=== PATIENT | female | born 2000 | race Caucasian/White ===

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

== ENCOUNTER 2018-11-30 22:26 | Emergency (ER) | payer OTHER ==
[2018-11-30 22:39] VITALS: TEMP 98.3
[2018-11-30] MEDS ORDERED: SODIUM CHLORIDE 0.9% 500 ML 500 ML IV STA (23:01)
--- NOTE | 2018-11-30 23:27 | ED ---
General Adult HPI - General Source: patient, family, EMS, RN notes reviewed, old records reviewed Mode of arrival: EMS Limitations: no limitations <Ryan Dao - Last Filed: 12/01/18 15:17> <Michael Hoff - Last Filed: 12/02/18 08:03> - General Chief complaint: Arrhythmia/Palpitations Stated complaint: Palpitations - History of Present Illness Initial comments: Chief complaint and history of present illness is a 26-year-old female brought to emergency by embolus because of palpitations. Patient reports that she was sleeping when she awakened she had a sensation of a rapid heartbeat. When EMS arrived her pulse rate was 1:15. Patient reports that was when it was at its highest. EKG was obtained here at a heart rate of 105. Patient's also 30 weeks . She is denying taking any medications, denies feeling ill, denies having a fever, denies having had any anxiety or problems that might make her heart rate go up. (Ryan Dao) - Related Data Home Medications Medication Instructions Recorded Confirmed Acetaminophen Tab [Tylenol Tab] 650 mg PO Q4-6H PRN 11/30/18 12/01/18 Def-Kltu-Eqatq Acid 1 tab PO DAILY 11/30/18 12/01/18 [-U Capsule (formulary)] Allergies Allergy/AdvReac Type Severity Reaction Status Date / Time No Known Allergies Allergy Verified 12/01/18 03:11 Review of Systems ROS Other: All systems not noted in ROS Statement are negative. <Ryan Dao - Last Filed: 12/01/18 15:17> ROS Other: All systems not noted in ROS Statement are negative. <Michael Hoff - Last Filed: 12/02/18 08:03> ROS Statement: Those systems with pertinent positive or pertinent negative responses have been documented in the HPI. Review of systems. Patient denies any headache no visual acuity changes denies chest pain states when her heart race for a fast she felt a little short of breath. No GI/ no neuro deficits. All systems are reviewed. Past medical problems 2 para 1. The patient's surgeries include a C- section. Family history no cancers or cardiac issues. Patient denies any ALLERGIES, nonsmoker, denies alcohol use. (Ryan Dao) Past Medical History Past Medical History: No Reported History History of Any Multi-Drug Resistant Organisms: None Reported Past Surgical History: No Surgical Hx Reported Past Psychological History: No Psychological Hx Reported Smoking Status: Never smoker Past Alcohol Use History: None Reported Past Drug Use History: None Reported - Past Family History Mother History Unknown: Yes Family Medical History: No Reported History <Ryan Dao - Last Filed: 12/01/18 15:17> General Exam Limitations: no limitations <Ryan Dao - Last Filed: 12/01/18 15:17> <Michael Hoff - Last Filed: 12/02/18 08:03> - General Exam Comments Initial Comments: General: The patient is awake and alert, in no distress, and does not appear acutely ill. Here with a chief complaint of rapid heartbeat. Vital signs shows temperature 98.3 pulse 105 respiratory rate 18 pulse ox 97% room air blood pressure 124/75 Eye: Pupils are equal, round and reactive to light, extra-ocular movements are intact ; there is normal conjunctiva bilaterally. No signs of icterus. Ears, nose, mouth and throat: There are moist mucous membranes and no oral lesions. Neck: The neck is supple, there is no tenderness, no carotid bruit. Cardiovascular: Heart rate 105, no murmur. Respiratory: Lungs are clear to auscultation, respirations are non-labored, breath sounds are equal. No wheezes, stridor, rales, or rhonchi. Gastrointestinal: Soft, non-distended, non-tender abdomen without masses or organomegaly noted. There is no rebound or guarding present. No CVA tenderness. Bowel sounds are unremarkable. Patient is clinically known to be 30 weeks . Back: There is no tenderness to palpation in the midline. There is no obvious deformity. No rashes noted. Musculoskeletal: Normal ROM, no tenderness, There is no pedal edema. There is no calf tenderness or swelling. Sensation intact. Pulses equal bilaterally 2+. Neurological: CN II-XII intact, There are no obvious motor or sensory deficits. Coordination appears grossly intact. Speech is normal. Skin: Skin is warm and dry and no rashes or lesions are noted. Psychiatric: Cooperative, appropriate mood & affect, normal judgment. (Ryan Dao) Vital Signs 11/30/18 12/01/18 22:34 02:36 Temperature 98.3 F 98.3 F Pulse Rate 106 H 104 H Respiratory 18 20 Rate Blood Pressure 124/75 111/64 O2 Sat by Pulse 97 98 Oximetry EKG Findings - EKG Comments: EKG Findings:: EKG was done and reviewed at 2233 showing sinus tachycardia rate 105. No acute ST elevation no ectopy no ischemic changes. NC interval was 114 QRS 82 QT 328 QTc 433. <Ryan Dao - Last Filed: 12/01/18 15:17> Medical Decision Making - Lab Data Result diagrams: 11/30/18 23:18 11/30/18 23:18 <Ryan Dao - Last Filed: 12/01/18 15:17> - Lab Data Result diagrams: 11/30/18 23:18 11/30/18 23:18 <Michael Hoff - Last Filed: 12/02/18 08:03> - Medical Decision Making Medical decision making; is a 18-year-old female who was 30 weeks . Patient reports her she was awakened because of chest pressure and discomfort and felt short of breath. With palpitations. Heart rate in the emergency room was 120. Labs were done which showed a hemoglobin 9.4 hemoglobin hematocrit of 28. Potassium 3.9. D-dimer elevated 1.42. BUN 17 creatinine 0.43 with a GFR greater than 90. Glucose 111. TSH normal at 1.23. I discussed with the patient the elevated d-dimer associated with her chest pressure discussed mild discomfort increased heart rate, she will need a CT to rule out pulmonary embolism. Patient agrees at this time. (Ryan Dao) The patient was signed out to me pending the result of her computed tomography scan. The radiologist has interpreted this as not showing any evidence of pulmonary embolism. The patient's vital signs are stable here. Patient will be discharged to be cleared by labor and delivery. (Michael Hoff) - Lab Data Lab Results 11/30/18 11/30/18 11/30/18 Range/Units 23:18 23:18 23:18 WBC 12.0 H (4.0-11.0) k/uL RBC 3.29 L (3.80-5.40) m/uL Hgb 9.4 L (11.4-16.0) gm/dL Hct 28.5 L (34.0-46.0) % MCV 86.5 (80.0-100.0) fL MCH 28.6 (25.0-35.0) pg MCHC 33.1 (31.0-37.0) g/dL RDW 13.8 (11.5-15.5) % Plt Count 266 (150-450) k/uL Neutrophils % 74 % Lymphocytes % 16 % Monocytes % 6 % Eosinophils % 1 % Basophils % 0 % Neutrophils # 8.9 H (1.3-7.7) k/uL Lymphocytes # 1.9 (1.0-4.8) k/uL Monocytes # 0.8 (0-1.0) k/uL Eosinophils # 0.1 (0-0.7) k/uL Basophils # 0.0 (0-0.2) k/uL PT 9.7 (9.0-12.0) sec INR 0.9 (<1.2) APTT 26.6 (22.0-30.0) sec D-Dimer 1.42 H (<0.60) mg/L FEU Sodium (137-145) mmol/L Potassium (3.5-5.1) mmol/L Chloride (98-107) mmol/L Carbon Dioxide (22-30) mmol/L Anion Gap mmol/L BUN (7-17) mg/dL Creatinine (0.52-1.04) mg/dL Est GFR (CKD-EPI)AfAm (>60 ml/min/1.73 sqM) Est GFR (CKD-EPI)NonAf (>60 ml/min/1.73 sqM) Glucose (74-99) mg/dL Calcium (8.4-10.2) mg/dL Magnesium (1.6-2.3) mg/dL Total Bilirubin (0.2-1.3) mg/dL AST (14-36) U/L ALT (9-52) U/L Alkaline Phosphatase (38-126) U/L Total Creatine Kinase 38 (30-135) U/L CK-MB (CK-2) 0.3 (0.0-2.4) ng/mL CK-MB (CK-2) Rel Index 0.8 Troponin I <0.012 (0.000-0.034) ng/mL Total Protein (6.3-8.2) g/dL Albumin (3.5-5.0) g/dL TSH (0.465-4.680) mIU/L 11/30/18 Range/Units 23:18 WBC (4.0-11.0) k/uL RBC (3.80-5.40) m/uL Hgb (11.4-16.0) gm/dL Hct (34.0-46.0) % MCV (80.0-100.0) fL MCH (25.0-35.0) pg MCHC (31.0-37.0) g/dL RDW (11.5-15.5) % Plt Count (150-450) k/uL Neutrophils % % Lymphocytes % % Monocytes % % Eosinophils % % Basophils % % Neutrophils # (1.3-7.7) k/uL Lymphocytes # (1.0-4.8) k/uL Monocytes # (0-1.0) k/uL Eosinophils # (0-0.7) k/uL Basophils # (0-0.2) k/uL PT (9.0-12.0) sec INR (<1.2) APTT (22.0-30.0) sec D-Dimer (<0.60) mg/L FEU Sodium 137 (137-145) mmol/L Potassium 3.9 (3.5-5.1) mmol/L Chloride 110 H (98-107) mmol/L Carbon Dioxide 20 L (22-30) mmol/L Anion Gap 7 mmol/L BUN 7 (7-17) mg/dL Creatinine 0.43 L (0.52-1.04) mg/dL Est GFR (CKD-EPI)AfAm >90 (>60 ml/min/1.73 sqM) Est GFR (CKD-EPI)NonAf >90 (>60 ml/min/1.73 sqM) Glucose 111 H (74-99) mg/dL Calcium 9.0 (8.4-10.2) mg/dL Magnesium 1.9 (1.6-2.3) mg/dL Total Bilirubin 0.3 (0.2-1.3) mg/dL AST 16 (14-36) U/L ALT 16 (9-52) U/L Alkaline Phosphatase 75 (38-126) U/L Total Creatine Kinase (30-135) U/L CK-MB (CK-2) (0.0-2.4) ng/mL CK-MB (CK-2) Rel Index Troponin I (0.000-0.034) ng/mL Total Protein 6.2 L (6.3-8.2) g/dL Albumin 3.1 L (3.5-5.0) g/dL TSH 1.230 (0.465-4.680) mIU/L Disposition Is patient prescribed a controlled substance at d/c from ED?: No Time of Disposition: 15:16 <Ryan Dao - Last Filed: 12/01/18 15:17> Is patient prescribed a controlled substance at d/c from ED?: No <Michael Hoff - Last Filed: 12/02/18 08:03> Clinical Impression: Tachycardia, Palpitations Disposition: HOME SELF-CARE Condition: Good Instructions: Heart Palpitations (ED) Referrals: Lakhiwnder Adair DO [Primary Care Provider] - 1-2 days
[2018-11-30 23:36] LABS: Basophils % (A) 0 %; Eosinophils # (A) 0.1 k/uL (0-0.7); Eosinophils % (A) 1 %; HCT 28.5 % (34.0-46.0); HGB 9.4 gm/dL (11.4-16.0); Lymphocytes # (A) 1.9 k/uL (1.0-4.8); Lymphocytes % (A) 16 %; MCH 28.6 pg (25.0-35.0); MCHC 33.1 g/dL (31.0-37.0); MCV 86.5 fL (80.0-100.0); Monocytes # (A) 0.8 k/uL (0-1.0); Monocytes % (A) 6 %; Neutrophils # (A) 8.9 k/uL (1.3-7.7); Neutrophils % (A) 74 %; Platelet Count 266 k/uL (150-450); RBC 3.29 m/uL (3.80-5.40); RDW 13.8 % (11.5-15.5)
[2018-11-30 23:48] LABS: ALT 16 U/L (9-52); AST 16 U/L (14-36); Albumin 3.1 g/dL (3.5-5.0); Alkaline Phosphatase 75 U/L (38-126); Anion Gap 7 mmol/L; Blood Urea Nitrogen 7 mg/dL (7-17); Carbon Dioxide 20 mmol/L (22-30); Chloride 110 mmol/L (98-107); Glucose 111 mg/dL (74-99); Magnesium 1.9 mg/dL (1.6-2.3); Potassium 3.9 mmol/L (3.5-5.1); Sodium 137 mmol/L (137-145); Total Bilirubin 0.3 mg/dL (0.2-1.3); Total Protein 6.2 g/dL (6.3-8.2)
[2018-11-30 23:57] LABS: INR 0.9 (<1.2); Partial Thromboplastin Time 26.6 sec (22.0-30.0); Prothrombin Time 9.7 sec (9.0-12.0)
[2018-11-30 23:58] LABS: Creatine Kinase 38 U/L (30-135)
[2018-12-01 00:11] LABS: Creatine Kinase MB 0.3 ng/mL (0.0-2.4); Troponin I <0.012 ng/mL (0.000-0.034)
[2018-12-01 00:18] LABS: D-Dimer 1.42 mg/L FEU (<0.60)
--- NOTE | 2018-12-01 02:15 | CT ---
EXAMINATION TYPE: CT angio chest DATE OF EXAM: 12/01/2018 1:55 AM COMPARISON: None HISTORY: SOB CT DLP: 348.3 mGycm Automated exposure control for dose reduction was used. CONTRAST: CTA scan of the thorax is performed with IV Contrast, patient injected with 80mL mL of Isovue 370, pu lmonary embolism protocol. There are 3-D post processed images.. FINDINGS: The lungs are clear of infiltrate. There is no evidence of a pulmonary mass. There is no pleural effu daya. There is no pericardial effusion. Upper abdominal soft tissues are unremarkable. The heart size is normal. There is no pericardial effusion. There are no hilar masses. There is no me diastinal adenopathy. Thoracic aorta appears normal. There is no evidence of aneurysm or dissection. There is normal contra st opacification of the pulmonary arteries. There are no filling defects. The bony thorax is intact. IMPRESSION: NORMAL CT ANGIOGRAM OF THE CHEST. NO EVIDENCE OF PULMONARY EMBOLISM.
[2018-12-01 02:37] VITALS: BP 111/64; PULSE 104; RESP 20
== END 2018-12-01 02:57 | disposition home or self-care (01) ==
LOC: EC 22:26
DX: O99.89 Other specified diseases and conditions complicating pregnancy, childbirth and the puerperium (principal); R00.2 Palpitations; R00.0 Tachycardia, unspecified; R07.89 Other chest pain; R06.02 Shortness of breath; Z3A.30 30 weeks gestation of pregnancy
CPT/HCPCS: 36415; 71275; 80053; 82550; 82553; 83735; 84443; 84484; 85025; 85379; 85610; 85730; 93005; 99285

== ENCOUNTER 2018-12-01 03:05 | Outpatient (CLI) | payer OTHER ==
[2018-12-01 03:36] VITALS: BP 133/66; PULSE 96; RESP 16; TEMP 97.3
--- NOTE | 2019-01-22 10:32 | P.MSEPDOC ---
Presenting Problems - Arrival Data Date of Arrival on Unit: 12/01/18 Time of Arrival on Unit: 03:05 Mode of Transport: Wheelchair - Complaint OB-Reason for Admission/Chief Complaint: Other Comment: shortness of breath and elevated heart rate. Medical History - Information : 2 Para: 1 Term: 1 : 0 Abortions: Spontaneous or Elective: 0 Number of Living Children: 1 - Gestational Age Gestational Age by LAI (wks/days): 30 Weeks and 5 Days Review of Systems - Review of Systems Constitutional: No problems Breast: No problems ENT: No problems Cardiovascular: No problems Respiratory: No problems Gastrointestinal: No problems Genitourinary: No problems Musculoskeletal: No problems Neurological: No problems Skin: No problems Vital Signs - Temperature Temperature: 97.3 F Temperature Source: Temporal Artery Scan - Pulse Right Brachial Pulse Rate: 96 Pulse Assessment Method: Automatic Cuff - Respirations Respiratory Rate: 16 Oxygen Delivery Method: Room Air O2 Sat by Pulse Oximetry: 100 - Blood Pressure Right Arm Blood Pressure: 133/66 Blood Pressure Mean: 88 Blood Pressure Source: Automatic Cuff Medical Screen Scoring (Pre) - Cervical Exam Dilation: Exam Deferred Effacement: Exam Deferred Membranes: Intact - Uterine Contractions Frequency: N/A Duration: N/A Intensity: N/A - Maternal Vital Signs Maternal Temperature: N/A Maternal Blood Pressure: N/A Signs of Preeclampsia: N/A - Pain Assessment Pain Scale Used: Numeric (1 - 10) Pain Intensity: 0 - Maternal Trauma Maternal Trauma: N/A - Assessment Baseline FHR: 125 Heart Rate - NICHD Category: Category I (Normal) = 0 NST: Reactive Position: N/A Station: N/A - Total Score Total Score (Pre): 0 - Level of Risk Level of Risk: Low (0-5) Physician Notification (Pre) - Physician Notified Physician Notified Date: 12/01/18 Physician Notified Time: 03:25 Physician/Practitioner Notifed:: Dr. Young Spoke With: Dr. Young New Order Received: Yes - Notification Comment Comment: Dr. Young called and given report on pt in tr. Pt was evaluated in ER for elevated heartrate and shortness of breath. Pt vs wnl. Reactive nst. Orders recieved to d/c pt to home. Disposition - Disposition OB Disposition: Discharge to home Discharge Date: 12/01/18 Discharge Time: 03:35 I agree with the RN Medical Screening Exam: Yes Risk & Benefit of care provided described in d/c instruction: Yes Diagnosis: OTHER SPECIFIED COMPLICATIONS OF LABOR AND DELIVERY
== END 2018-12-01 03:35 | disposition home or self-care (01) ==
LOC: FBPOP 03:05
PROVIDERS: ATTEND Obstetrics & Gynecology Obstetrics
DX: O75.89 Other specified complications of labor and delivery (principal); Z3A.30 30 weeks gestation of pregnancy
CPT/HCPCS: 59025; G0463; 99213

== ENCOUNTER 2018-12-26 21:00 | Outpatient (CLI) | payer OTHER ==
[2018-12-26] MEDS ORDERED: LACTATED RINGERS 1,000 ML IV SCH ×2 (21:30→22:00)
[2018-12-26 21:32] LABS: Glucose,Whole Blood 90 mg/dL (75-99)
[2018-12-26 21:40] LABS: Basophils % (A) 0 %; Eosinophils # (A) 0.1 k/uL (0-0.7); Eosinophils % (A) 1 %; HCT 29.1 % (34.0-46.0); HGB 9.6 gm/dL (11.4-16.0); Hypochromasia Slight; Lymphocytes # (A) 2.3 k/uL (1.0-4.8); Lymphocytes % (A) 16 %; MCH 27.5 pg (25.0-35.0); MCHC 32.8 g/dL (31.0-37.0); MCV 83.9 fL (80.0-100.0); Mean Platelet Volume 7.5; Monocytes # (A) 0.8 k/uL (0-1.0); Monocytes % (A) 6 %; Neutrophils # (A) 10.6 k/uL (1.3-7.7); Neutrophils % (A) 75 %; Platelet Count 303 k/uL (150-450); RBC 3.47 m/uL (3.80-5.40); RDW 14.5 % (11.5-15.5); WBC 14.1 k/uL (4.0-11.0)
[2018-12-26 21:47] VITALS: BP 107/62; TEMP 98.9
[2018-12-26 21:56] LABS: Appearance,Urine Clear (Clear); Bacteria,Urine Rare /hpf; Bilirubin,Urine Negative (Negative); Blood,Urine Negative (Negative); Color,Urine Colorless; Glucose,Urine (UA) Negative (Negative); Ketones,Urine Negative (Negative); Leukocyte Esterase,Urine Large (Negative); Nitrite,Urine Negative (Negative); Protein,Urine Negative (Negative); RBC,Urine <1 /hpf (0-5); Specific Gravity,Urine 1.002 (1.001-1.035); Squamous Epithelial Cell,Urine 1 /hpf (0-4); Urobilinogen,Urine <2.0 mg/dL (<2.0); WBC,Urine 4 /hpf (0-5)
[2018-12-27 00:41] VITALS: PULSE 104; RESP 18
--- NOTE | 2019-01-18 11:42 | P.MSEPDOC ---
Presenting Problems - Arrival Data Date of Arrival on Unit: 12/26/18 Time of Arrival on Unit: 21:00 Mode of Transport: Ambulatory - Complaint OB-Reason for Admission/Chief Complaint: Other Comment: vaginal pressure Medical History - Information : 2 Para: 1 Term: 1 : 0 Abortions: Spontaneous or Elective: 0 Number of Living Children: 1 - Gestational Age Gestational Age by LAI (wks/days): 34 Weeks and 3 Days - History Complications: Other Comment: tachycardia Review of Systems - Review of Systems Constitutional: No problems Breast: No problems ENT: No problems Cardiovascular: Irregular heartbeat Respiratory: No problems Gastrointestinal: No problems Genitourinary: No problems Musculoskeletal: No problems Neurological: No problems Skin: No problems Vital Signs - Temperature Temperature: 98.9 F Temperature Source: Oral - Pulse Right Supine Brachial Pulse Rate: 104 Pulse Assessment Method: Automatic Cuff - Respirations Respiratory Rate: 18 Oxygen Delivery Method: Room Air O2 Sat by Pulse Oximetry: 99 - Blood Pressure Right Arm Supine Blood Pressure: 107/62 Blood Pressure Mean: 77 Blood Pressure Source: Automatic Cuff Medical Screen Scoring (Pre) - Cervical Exam Dilation: Exam Deferred Effacement: Exam Deferred - Uterine Contractions Frequency: N/A Duration: N/A Intensity: N/A - Maternal Vital Signs Maternal Temperature: N/A Signs of Preeclampsia: N/A - Pain Assessment Pain Scale Used: Numeric (1 - 10) Pain Intensity: 0 Pain Behavior: None Exhibited - Maternal Trauma Maternal Trauma: N/A - Assessment Baseline FHR: 165 Heart Rate - NICHD Category: Category II (Indeterminate) = 3 NST: Non-reactive = 3 - Total Score Total Score (Pre): 6 - Level of Risk Level of Risk: Medium (6-9) Physician Notification (Pre) - Physician Notified Physician Notified Date: 12/26/18 Physician Notified Time: 21:25 Physician/Practitioner Notifed:: Dr Gandhi Spoke With: Dr Gandhi New Order Received: Yes - Notification Comment Comment: Start IV of LR, draw CBC and UA and obtain CBG, call with results Medical Screen Scoring (Post) - Cervical Exam Dilation: 0 cm = 0 Membranes: Intact - Uterine Contractions Frequency: > 5 minutes apart = 1 - Pain Assessment Pain Scale Used: Numeric (1 - 10) Pain Intensity: 0 - Assessment Heart Rate: 125 Heart Rate - NICHD Category: Category I (Normal) = 0 NST: Reactive Position: N/A - Total Score Total Score (Post): 1 - Post Treatment Level of Risk Post Treatment Level of Risk: Low (0-5) Physician Notification (Post) - Physician Notified Physician Notified Date: 12/27/18 Physician Notified Time: 22:40 Physician/Practitioner Notified:: Dr Gandhi Spoke With: Dr Gandhi New Order Received: Yes - Notification Comment Comment: May discharge to home Disposition - Disposition OB Disposition: Discharge to home Discharge Date: 12/27/18 Discharge Time: 22:45 I agree with the RN Medical Screening Exam: Yes Risk & Benefit of care provided described in d/c instruction: Yes Diagnosis: FALSE LABOR BEFORE 37 COMPLETED WEEKS OF GEST, THIRD TRI
== END 2018-12-26 22:45 | disposition home or self-care (01) ==
LOC: FBPOP 21:00
PROVIDERS: ATTEND Obstetrics & Gynecology
DX: O47.03 False labor before 37 completed weeks of gestation, third trimester (principal); Z3A.34 34 weeks gestation of pregnancy
CPT/HCPCS: 59025; 96360; 85025; 81001; 87086; G0463; 99214

== ENCOUNTER 2019-01-23 11:50 | Outpatient (CLI) | payer OTHER ==
[2019-01-23] MEDS ORDERED: LACTATED RINGERS 1,000 ML IV SCH (12:28)
[2019-01-23 13:20] VITALS: BP 136/63; PULSE 112; RESP 18; TEMP 97.7
--- NOTE | 2019-02-21 11:25 | P.MSEPDOC ---
Presenting Problems - Arrival Data Date of Arrival on Unit: 01/23/19 Time of Arrival on Unit: 11:50 Mode of Transport: Ambulatory - Complaint OB-Reason for Admission/Chief Complaint: Possible Onset of Labor, Rule Out SROM Comment: presents to triage for contractions and possible SROM Medical History - Information : 2 Para: 1 Term: 1 : 0 Abortions: Spontaneous or Elective: 0 Number of Living Children: 1 - Gestational Age Gestational Age by LAI (wks/days): 38 Weeks and 2 Days Review of Systems - Review of Systems Constitutional: No problems Breast: No problems ENT: No problems Cardiovascular: No problems Respiratory: No problems Gastrointestinal: No problems Genitourinary: No problems Musculoskeletal: No problems Neurological: No problems Skin: No problems Vital Signs - Temperature Temperature: 97.7 F Temperature Source: Temporal Artery Scan - Pulse Right Brachial Pulse Rate: 112 - Respirations Respiratory Rate: 18 Oxygen Delivery Method: Room Air - Blood Pressure Right Arm Blood Pressure: 136/63 Blood Pressure Mean: 87 Medical Screen Scoring (Pre) - Cervical Exam Dilation: 0 cm = 0 Effacement: More than 50% = 2 Membranes: Intact - Uterine Contractions Frequency: Scheduled / = 6 Duration: > 40 seconds = 2 Intensity: N/A - Maternal Vital Signs Maternal Temperature: N/A Maternal Blood Pressure: N/A Signs of Preeclampsia: N/A Maternal Respirations: N/A - Pain Assessment Pain Location and Character: Abdomen Pain Scale Used: Numeric (1 - 10) Pain Intensity: 9 Pain Description: *Acute, Cramping Pain Radiation Location: none Pain Frequency: Intermittent Pain Duration: 2 Pain Duration Units: Hours Pain Behavior: Vocalization Pain Aggravating Factors: Contractions - Maternal Trauma Maternal Trauma: N/A - Assessment Baseline FHR: 140 Heart Rate - NICHD Category: Category I (Normal) = 0 NST: Reactive Position: N/A - Total Score Total Score (Pre): 10 - Level of Risk Level of Risk: High (10+) Physician Notification (Pre) - Physician Notified Physician Notified Date: 01/23/19 Physician Notified Time: 12:28 Physician/Practitioner Notifed:: Dr. Gandhi Spoke With: Dr. Gandhi New Order Received: Yes - Notification Comment Comment: give pt IVF for hydration and recheck cervix in an hour Medical Screen Scoring (Post) - Cervical Exam Dilation: 0 cm = 0 Effacement: More than 50% = 2 Membranes: Intact - Uterine Contractions Frequency: Scheduled / = 6 Duration: N/A Intensity: N/A - Maternal Vital Signs Maternal Temperature: N/A Signs of Preeclampsia: N/A Maternal Respirations: N/A - Pain Assessment Pain Location and Character: Abdomen Pain Scale Used: Numeric (1 - 10) Pain Intensity: 6 Pain Description: *Acute, Cramping - Maternal Trauma Maternal Trauma: N/A - Assessment Heart Rate: 140 Heart Rate - NICHD Category: Category I (Normal) = 0 NST: Reactive Position: N/A Station: N/A - Total Score Total Score (Post): 8 - Post Treatment Level of Risk Post Treatment Level of Risk: Medium (6-9) Physician Notification (Post) - Physician Notified Physician Notified Date: 01/23/19 Physician Notified Time: 13:25 Physician/Practitioner Notified:: Dr. Gandhi Spoke With: Dr. Gandhi New Order Received: Yes - Notification Comment Comment: pt treated with IVF, no cervical change, contractions less and pain better, pt scheduled for repeat c/s on January 29 Disposition - Disposition OB Disposition: Triage, Discharge to home, Written follow up instructions reviewed Discharge Date: 01/23/19 Discharge Time: 13:35 I agree with the RN Medical Screening Exam: Yes Risk & Benefit of care provided described in d/c instruction: Yes Diagnosis: FALSE LABOR AT OR AFTER 37 COMPLETED WEEKS OF GESTATION
== END 2019-01-23 13:35 | disposition home or self-care (01) ==
LOC: FBPOP 11:50
PROVIDERS: ATTEND Obstetrics & Gynecology
DX: O47.1 False labor at or after 37 completed weeks of gestation (principal); Z3A.38 38 weeks gestation of pregnancy
CPT/HCPCS: 59025; 96360; G0463; 99214

== ENCOUNTER 2019-01-24 08:18 | Inpatient (IN) | payer OTHER ==
[2019-01-24] MEDS ORDERED: CITRIC ACID-SODIUM CITRATE 15 ML CUP PO ONE (08:54)
[2019-01-24] MEDS ORDERED: ceFAZolin IN SWFI 2 GM/20 ML SYRINGE IVP ONE (08:54)
[2019-01-24] MEDS ORDERED: LACTATED RINGERS 1,000 ML IV SCH (09:00)
[2019-01-24 09:38] VITALS: BMI 38.2
[2019-01-24 09:48] LABS: Basophils % (A) 0 %; Eosinophils # (A) 0.1 k/uL (0-0.7); Eosinophils % (A) 1 %; HCT 29.4 % (34.0-46.0); HGB 9.3 gm/dL (11.4-16.0); Hypochromasia Moderate; Lymphocytes % (A) 14 %; MCH 26.2 pg (25.0-35.0); MCHC 31.6 g/dL (31.0-37.0); Mean Platelet Volume 6.6; Monocytes # (A) 0.8 k/uL (0-1.0); Monocytes % (A) 6 %; Neutrophils % (A) 77 %; Platelet Count 333 k/uL (150-450); RBC 3.55 m/uL (3.80-5.40); RDW 15.4 % (11.5-15.5); WBC 14.3 k/uL (4.0-11.0)
[2019-01-24] MEDS ORDERED: NALBUPHINE 10 MG/ML (1 ML AMP) ONE (09:56)
[2019-01-24] MEDS ORDERED: KETOROLAC 30 MG/ML 1 ML VIAL ONE (09:56)
[2019-01-24] MEDS ORDERED: MORPHINE SULFATE (PF) 0.3 MG/0.3 ML SYR ONE (09:56)
[2019-01-24] MEDS ORDERED: ePHEDrine SULFATE/0.9% NACL/PF 50 MG/5 ML SYRINGE IV ONE (09:56)
[2019-01-24] MEDS ORDERED: ONDANSETRON 4 MG/2 ML VIAL ONE (09:56)
[2019-01-24] MEDS ORDERED: OXYTOCIN 10 UNIT/ML 1 ML VIAL ONE (09:56)
[2019-01-24] MEDS ORDERED: ACETAMINOPHEN TAB 325 MG TAB PO PRN (11:05)
[2019-01-24] MEDS ORDERED: diphenhydrAMINE 50 MG/ML 1 ML VIAL IVP PRN ×2 (11:05)
[2019-01-24] MEDS ORDERED: diphenhydrAMINE 50 MG CAP PO PRN (11:05)
[2019-01-24] MEDS ORDERED: diphenhydrAMINE 25 MG CAP PO PRN (11:05)
[2019-01-24] MEDS ORDERED: ZOLPIDEM 5 MG TAB PO PRN (11:05)
[2019-01-24] MEDS ORDERED: METOCLOPRAMIDE 5 MG/ML 2 ML VIAL IVP PRN (11:05)
[2019-01-24] MEDS ORDERED: NALOXONE 0.4 MG/ML 1 ML VIAL IV PRN (11:05)
[2019-01-24] MEDS ORDERED: ONDANSETRON 4 MG/2 ML VIAL IVP PRN (11:05)
--- NOTE | 2019-01-24 11:12 | P.HPOB ---
History of Present Illness H&P Date: 01/24/19 Chief Complaint: 38-3/7 weeks, previous section, labor The patient is a 18-year-old 2 para 1001 admitted at 38-3/7 weeks as established by an 8 week ultrasound. She is admitted in early active labor with all signs reassuring. She has demonstrated cervical change and has been to labor and delivery on several occasions over the last 24-48 hours complaining of contractions. She has a history of a previous section and has declined vaginal trial of labor. Her has otherwise been uncomplicated and group B strep status is positive. Obstetrical history: 2 para 1001 with 1 previous delivery at term for arrest of descent. Current statistics are listed in history of present illness. EDC of 02/07/2017 was established by an 8 week ultrasound. Laboratory workup demonstrates a blood type of A+ with a negative antibody screen. Rubella status is immune. The remainder of the laboratory workup was within normal limits. Early Glucola was within normal limits while second trimester Glucola was just elevated and she had a subsequent normal three-hour glucose tolerance test. Group B strep status is positive. Gynecologic history: Unremarkable with no history of any infections to include STDs. Review of Systems Review of systems is confined to history of present illness. Past Medical History Past Medical History: No Reported History History of Any Multi-Drug Resistant Organisms: None Reported Past Surgical History: Section Past Anesthesia/Blood Transfusion Reactions: No Reported Reaction Past Psychological History: No Psychological Hx Reported Smoking Status: Never smoker Past Alcohol Use History: None Reported Past Drug Use History: None Reported - Past Family History Mother History Unknown: Yes Family Medical History: No Reported History Medications and Allergies Home Medications Medication Instructions Recorded Confirmed Type Acetaminophen Tab [Tylenol Tab] 650 mg PO Q4-6H PRN 11/30/18 01/24/19 History Zza-Zybo-Fylxw Acid 1 tab PO DAILY 11/30/18 01/24/19 History [-U Capsule (formulary)] Allergies Allergy/AdvReac Type Severity Reaction Status Date / Time No Known Allergies Allergy Verified 01/23/19 12:01 Exam Vital Signs Temp Pulse Resp BP Pulse Ox 01/24/19 08:31 97.5 F L 102 H 18 129/82 99 Intake and Output 01/23/19 01/24/19 01/24/19 22:59 06:59 14:59 Other: Weight 97.976 kg In general, this is a well-developed, well-nourished female in no acute distress though she is uncomfortable in early labor. Her heart has a regular rhythm and rate without murmur. Her lungs are clear to auscultation bilaterally in all rodríguez. Her abdomen is gravid, nondistended, has normal active bowel sounds, is soft, nontender, and without any palpable masses aside from uterine fundus. Her extremities are without any cyanosis, clubbing, or edema and are nontender to palpation bilaterally. Digital cervical examination demonstrates her cervix to be approximately 1 cm dilated, 80% effaced, the vertex in presentation at -1-2 station which is a change from previous documentation last night. Results Result Diagrams: 01/24/19 09:05 Abnormal Lab Results - Last 24 Hours (Table) 01/24/19 Range/Units 09:05 WBC 14.3 H (4.0-11.0) k/uL RBC 3.55 L (3.80-5.40) m/uL Hgb 9.3 L (11.4-16.0) gm/dL Hct 29.4 L (34.0-46.0) % Neutrophils # 11.0 H (1.3-7.7) k/uL Assessment and Plan (1) Previous section Current Visit: Yes Status: Acute Code(s): Z98.891 - HISTORY OF UTERINE SCAR FROM PREVIOUS SURGERY SNOMED Code(s): 977090389 (2) Active labor at term Current Visit: Yes Status: Acute Code(s): OGF8623 - SNOMED Code(s): 66224495 Plan: The patient has requested repeat section rather than trial of labor. She will be taken the operating room where she was ago repeat low transverse section to be followed by routine postoperative care. The risks and complications have been thoroughly discussed.
[2019-01-24] MEDS ORDERED: OXYTOCIN 20 UNITS/1000 ML NS 1,000 ML IV SCH (11:15)
--- NOTE | 2019-01-24 11:18 | P.OP ---
Date of Procedure: 01/24/19 Preoperative Diagnosis: #1. 38-3/7 weeks, previous section, declining trial of labor #2. Active labor Postoperative Diagnosis: Same plus #3. Placental abruption Procedure(s) Performed: #1. Repeat low transverse section Anesthesia: spinal Surgeon: Henry Gandhi Fleecer #1: Kori Ly Estimated Blood Loss (ml): 500 IV fluids (ml): 1,200 Urine output (ml): 300 Pathology: other (Placenta) Condition: stable Disposition: floor Operative Findings: Intraoperatively, the patient had a moderate amount of scarring on all levels entering the abdomen. Upon opening the uterus, bloody fluid was encountered with some organized clot emerging is well. She was delivered of a viable 6 lbs. 15 oz. baby boy with Apgars of 7 at 1 minute and 8 at 5 minutes delivered in the occiput anterior position. The placenta was delivered manually, intact, and grossly normal although there was some organized clot present as noted above. The uterus, tubes, and ovaries were otherwise entirely normal to inspection. Description of Procedure: The patient was prepped and draped in usual fashion after spinal anesthesia was administered by the anesthesiologist. A Pfannenstiel incision was made through pre-existing scar and extended into the abdominal cavity with minimal difficulty. There was a mild to moderate amount of scarring on all levels entering the abdomen. The bladder peritoneum was elevated, incised, and reflected distally as it had scarred high from previous . A 2 cm incision was made in the transverse plane of the lower uterine segment to enter the uterus at which time blood fluid was noted. The incision was extended in both directions bluntly and the head delivered up and through the incision where the nose and mouth were thoroughly suctioned. There was additionally noted to be some organized clot that emerged with the fluid and the infant. The remainder of the was delivered onto the field where the cord was doubly c lamped, cut, and the infant passed for resuscitative measures with weight and Apgars as noted above. A segment of cord was doubly clamped, cut, and set aside should cord gases become necessary. The placenta was delivered manually and intact as noted above. The uterus was exteriorized and the interior cavity of the uterus swept of any remaining placental or membranous fragments. There was a moderate amount of possibly organized clot or decidual reaction present. The margins of the incision were grasped with Raygoza clamps and the incision was closed in 2 layers. The first layer was a running locking stitch of 0 chromic catgut from margin to margin followed by a running imbricating layer of 0 chromic catgut from margin to margin. The posterior cul-de-sac was suctioned with a guard and the uterine and ovarian findings are normal as noted above. The uterus was replaced within the abdominal cavity and the gutters swept of any remaining blood, fluid, or clot. Any small points of bleeding were made hemostatic with the Bovie. Once hemostasis was established, the parietal peritoneum was loosely reapproximated and layer of muscles examined and made hemostatic with the Bovie. The fascia was closed with 2 running stitches of 0 Vicryl proceeding from lateral margins to the midpoint. The subcutaneous tissues were irrigated, made hemostatic with the Bovie, and reapproximated with a running stitch of 30 plain catgut. The skin was reapproximated with a running subcuticular stitch of 4-0 Vicryl followed by half-inch Steri-Strips placed with Mastisol. Estimated blood loss for the entire case was approximate 500 mL. There were no complications. All sponge, instrument, and needle counts were correct. The patient tolerated the procedure well and proceeded to the recovery room in stable condition. Both mother and are resting comfortably in recovery though the infant has been taken the special care nursery for observation secondary to some difficulty with breathing, showing retractions.
[2019-01-24] MEDS: LACTATED RINGERS 1,000 ML IV SCH ×3 (12:06→21:47)
[2019-01-24] MEDS ORDERED: ACETAMINOPHEN IV (For NPO) 1,000 MG in EMPTY BAG 1 BAG IVPB STA (12:43)
[2019-01-24] MEDS: KETOROLAC 30 MG/ML 1 ML VIAL IVP PRN (17:45)
[2019-01-24] MEDS: SENNOSIDES-DOCUSATE SODIUM 1 EACH TAB PO SCH (21:47)
[2019-01-25] MEDS: LACTATED RINGERS 1,000 ML IV SCH (04:33)
[2019-01-25] MEDS: KETOROLAC 30 MG/ML 1 ML VIAL IVP PRN (06:56)
[2019-01-25 07:34] LABS: Basophils % (A) 0 %; Eosinophils # (A) 0.1 k/uL (0-0.7); Eosinophils % (A) 1 %; HCT 23.7 % (34.0-46.0); Hypochromasia Marked; Lymphocytes # (A) 1.9 k/uL (1.0-4.8); Lymphocytes % (A) 14 %; MCH 26.8 pg (25.0-35.0); MCHC 32.1 g/dL (31.0-37.0); MCV 83.5 fL (80.0-100.0); Mean Platelet Volume 6.6; Monocytes # (A) 0.8 k/uL (0-1.0); Monocytes % (A) 5 %; Neutrophils # (A) 11.3 k/uL (1.3-7.7); Neutrophils % (A) 79 %; Platelet Count 290 k/uL (150-450); RBC 2.84 m/uL (3.80-5.40); RDW 15.4 % (11.5-15.5); WBC 14.3 k/uL (4.0-11.0)
[2019-01-25 07:40] LABS: HGB 7.6 gm/dL (11.4-16.0)
[2019-01-25] MEDS: SENNOSIDES-DOCUSATE SODIUM 1 EACH TAB PO SCH ×2 (07:56→23:26)
[2019-01-25] MEDS: HYDROcodone/APAP 5-325MG 1 EACH TAB PO PRN ×2 (10:23→16:20)
--- NOTE | 2019-01-25 10:32 | P.PNOBGPC ---
Subjective - Subjective Principal diagnosis: POD 1 RCS secondary to abruption Interval history: Patient has done well overnight. She is ambulating and voiding without difficulty. She is tolerating a regular diet without nausea or vomiting. She denies concerns. She states her pain is well-controlled with oral pain medication Patient reports: Reports appetite normal, Reports voiding normally, Reports dizzy ambulation, Reports pain well controlled, Reports ambulating normally : doing well Objective - Vital Signs Latest vital signs: Vital Signs Temp Pulse Resp BP Pulse Ox 01/25/19 08:00 98.5 F 108 H 17 116/68 97 01/25/19 04:00 98 F 106 H 15 124/75 01/25/19 00:00 98 F 104 H 15 116/69 01/24/19 20:00 98 F 93 15 109/59 01/24/19 16:30 98.1 F 97 16 95/56 98 01/24/19 13:13 97.2 F L 103 H 14 121/64 100 01/24/19 12:43 125 H 14 113/59 100 01/24/19 12:13 117 H 14 120/66 99 01/24/19 11:58 85 16 119/61 97 01/24/19 11:43 88 14 116/58 97 01/24/19 11:28 110 H 14 124/66 100 01/24/19 11:13 97.4 F L 107 H 14 121/63 97 Intake and Output 01/24/19 01/25/19 01/25/19 22:59 06:59 14:59 Intake Total 600 Output Total 500 900 Balance -500 -900 600 Intake: Oral 600 Output: Urine 500 900 Uretheral (Stark) 300 Other: # Voids 1 1 - Exam Extremities: Present: normal Abdomen: Present: normal appearance, soft Incision: Present: normal, dry, intact Uterus: Present: normal, firm - Labs Labs: Abnormal Lab Results - Last 24 Hours (Table) 01/25/19 Range/Units 06:41 WBC 14.3 H (4.0-11.0) k/uL RBC 2.84 L (3.80-5.40) m/uL Hgb 7.6 L D (11.4-16.0) gm/dL Hct 23.7 L (34.0-46.0) % Neutrophils # 11.3 H (1.3-7.7) k/uL Assessment and Plan (1) Abruptio placenta Current Visit: Yes Status: Acute Code(s): O45.90 - PREMATURE SEPARATION OF PLACENTA, UNSP, UNSP TRIMESTER SNOMED Code(s): 109133893 (2) Previous section Current Visit: Yes Status: Acute Code(s): Z98.891 - HISTORY OF UTERINE SCAR FROM PREVIOUS SURGERY SNOMED Code(s): 114523310 (3) S/P section Current Visit: Yes Status: Acute Code(s): Z98.891 - HISTORY OF UTERINE SCAR FROM PREVIOUS SURGERY SNOMED Code(s): 382148886 Plan: We'll continue routine postoperative care.
[2019-01-25] MEDS: IBUPROFEN 600 MG TAB PO PRN ×2 (13:22→23:44)
[2019-01-25] MEDS: HYDROcodone/APAP 7.5-325MG 1 EACH TAB PO PRN (21:22)
[2019-01-26] MEDS: HYDROcodone/APAP 7.5-325MG 1 EACH TAB PO PRN ×3 (08:31→22:38)
[2019-01-26] MEDS: SENNOSIDES-DOCUSATE SODIUM 1 EACH TAB PO SCH (08:32)
--- NOTE | 2019-01-26 10:04 | P.PNOBGPC ---
Subjective - Subjective Principal diagnosis: POD 2 RCS Interval history: Patient continues to do well postoperatively. She is ambulating and voiding without difficulty. She states her pain is well-controlled. She denies concerns this morning. She does wish to stay an additional day secondary to her infant being in special care nursery. Patient reports: Reports appetite normal, Reports voiding normally, Reports pain well controlled, Reports ambulating normally [place]: doing well (In the nursery on high flow oxygen) Objective - Vital Signs Latest vital signs: Vital Signs Temp Pulse Resp BP Pulse Ox 01/26/19 07:30 98.2 F 115 H 17 121/90 100 01/26/19 00:00 98 F 99 15 118/69 01/25/19 15:41 98.7 F 98 17 104/58 - Exam Extremities: Present: normal Abdomen: Present: normal appearance, soft Incision: Present: normal, dry, intact Uterus: Present: normal, firm Assessment and Plan (1) Abruptio placenta Current Visit: Yes Status: Acute Code(s): O45.90 - PREMATURE SEPARATION OF PLACENTA, UNSP, UNSP TRIMESTER SNOMED Code(s): 073608155 (2) Previous section Current Visit: Yes Status: Acute Code(s): Z98.891 - HISTORY OF UTERINE SCAR FROM PREVIOUS SURGERY SNOMED Code(s): 167092220 (3) S/P section Current Visit: Yes Status: Acute Code(s): Z98.891 - HISTORY OF UTERINE SCAR FROM PREVIOUS SURGERY SNOMED Code(s): 314051858 Plan: . Patient continues to do well postoperatively we'll continue routine postoperative care
[2019-01-26] MEDS: IBUPROFEN 600 MG TAB PO PRN (12:52)
--- NOTE | 2019-01-26 16:49 | P.PN ---
Progress Note - Text Progress Note Date: 01/25/19 This is late entry,, patient was seen January 2019, Am . Postoperative day 1 status post section under spinal anesthesia, and intrathecal morphine given for postoperative analgesia, patient doing well, there is no anesthesia related complications, Patient had no headache, vital signs stable , Assessment and plan= postop day 1 , status post , doing well there is no anesthesia related complication.
[2019-01-27] MEDS: SENNOSIDES-DOCUSATE SODIUM 1 EACH TAB PO SCH ×3 (00:45→20:12)
[2019-01-27] MEDS: HYDROcodone/APAP 7.5-325MG 1 EACH TAB PO PRN ×2 (07:57→14:21)
--- NOTE | 2019-01-27 10:32 | P.PNOBGPC ---
Subjective - Subjective Patient reports: Reports appetite normal, Reports voiding normally, Reports pain well controlled, Reports ambulating normally : doing well, in NICU (Continues to have some difficulty with breathing, requiring supplemental oxygen.) Objective - Vital Signs Latest vital signs: Vital Signs Temp Pulse Resp BP Pulse Ox 01/27/19 08:00 98.6 F 94 15 108/59 98 01/27/19 00:00 98.4 F 97 16 118/69 01/26/19 15:16 98.0 F 84 17 104/61 99 - Exam Extremities: Present: normal Abdomen: Present: normal appearance, soft. Absent: distention, tenderness Incision: Present: normal, dry, intact Uterus: Present: normal, firm (The uterine fundus as tonic and appropriately tender around the umbilicus.) Assessment and Plan (1) Previous section Current Visit: Yes Status: Acute Code(s): Z98.891 - HISTORY OF UTERINE SCAR FROM PREVIOUS SURGERY SNOMED Code(s): 240313600 (2) Active labor at term Current Visit: Yes Status: Acute Code(s): KAX6743 - SNOMED Code(s): 28012034 (3) S/P section Current Visit: Yes Status: Acute Code(s): Z98.891 - HISTORY OF UTERINE SCAR FROM PREVIOUS SURGERY SNOMED Code(s): 395506005 Plan: As the remains and special care nursery for ongoing treatment, the patient is opting to remain in the hospital for as long as allowed. She will likely be discharged home tomorrow on postoperative day #4 barring no complications. Continue routine postoperative care.
[2019-01-27] MEDS: IBUPROFEN 600 MG TAB PO PRN (19:54)
[2019-01-27] MEDS: HYDROcodone/APAP 5-325MG 1 EACH TAB PO PRN (23:06)
[2019-01-28] MEDS: IBUPROFEN 600 MG TAB PO PRN ×3 (02:07→16:50)
[2019-01-28] MEDS: HYDROcodone/APAP 5-325MG 1 EACH TAB PO PRN ×2 (05:09→10:55)
[2019-01-28 07:49] VITALS: RESP 18
[2019-01-28] MEDS: SENNOSIDES-DOCUSATE SODIUM 1 EACH TAB PO SCH (08:00)
--- NOTE | 2019-01-28 09:14 | P.DS ---
Providers Date of admission: 01/24/19 09:02 Expected date of discharge: 01/28/19 Attending physician: Henry Gandhi Primary care physician: Stated None - Discharge Diagnosis(es) (1) Previous section Current Visit: Yes Status: Acute (2) Active labor at term Current Visit: Yes Status: Acute (3) S/P section Current Visit: Yes Status: Acute Hospital Course: The patient is a 18-year-old 2 para 1001 admitted at 38-3/7 weeks by good dating parameters perches admitted in early active labor with all signs reassuring. She has a history of previous section requested repeat. As result of labor, she was taken the operating room where she was delivered of a viable 6 lbs. 15 oz. baby boy with Apgars of 7 at 1 minute and 8 at 5 minutes. She was discovered intraoperatively to have a subclinical abruption of the placenta with grossly bloody fluid. The patient's postoperative course was unremarkable with vital signs remained stable and her temperature was afebrile throughout. She opted to remain in the hospital for the time allotted to her as the remained in special care for ongoing respiratory concerns. She was deemed stable for discharge on postoperative day #4 was discharged home to follow-up in the office in 2 weeks for an incision check and 6 weeks routinely. Discharge instructions included calling for any significantly increased bleeding or foul-smelling lochia, significantly increased fever abdominal pain, perineal complaints, breast complaints, incisional complaints, or anything else that concerned her. She is additionally instructed to have nothing in vagina for at least 6 weeks time to include intercourse. She understood her instructions and agrees to follow up as noted above. Discharge medications included continued vitamins as she is attempting to pump and/or breast-feed. She was additionally provided with a prescription for Tylenol 3, 1-2 by mouth every 6 hours when necessary pain, #20 dispensed with no refills. Maternal blood type is A+ and rubella status is immune. Discharge hemoglobin and hematocrit were 7.6 and 23.7 respectively. As result, she was to continue using iron sulfate 1- 2 times daily for the next month. Procedures: #1. Repeat low transverse section Patient Condition at Discharge: Good Plan - Discharge Summary Discharge Rx Participant: No New Discharge Prescriptions: No Action Eex-Fwns-Ygkuz Acid [-U Capsule (formulary)] 1 tab PO DAILY Acetaminophen Tab [Tylenol Tab] 650 mg PO Q4-6H PRN PRN Reason: Pain Discharge Medication List Acetaminophen Tab [Tylenol Tab] 650 mg PO Q4-6H PRN 11/30/18 [History] Kni-Yxsf-Wxnrx Acid [-U Capsule (formulary)] 1 tab PO DAILY 11/30/18 [History] Follow up Appointment(s)/Referral(s): Henry Gandhi MD [STAFF PHYSICIAN] - 2 Weeks Discharge Disposition: HOME SELF-CARE
[2019-01-28 17:09] VITALS: BP 143/78; PULSE 94; TEMP 98.2
== END 2019-01-28 17:59 | disposition home or self-care (01) | DRG 788 ==
LOC: FBPOP 08:18 → 4FBP 09:02
PROVIDERS: ADMIT Obstetrics & Gynecology; ATTEND Obstetrics & Gynecology
PROC: 10D00Z1 Extraction of Products of Conception, Low, Open Approach (ICD-10-PCS; principal; 2019-01-24 10:00)
DX: O45.93 Premature separation of placenta, unspecified, third trimester (principal); O34.211 Maternal care for low transverse scar from previous cesarean delivery; O99.824 Streptococcus B carrier state complicating childbirth; O13.4 Gestational [pregnancy-induced] hypertension without significant proteinuria, complicating childbirth; Z37.0 Single live birth; Z3A.38 38 weeks gestation of pregnancy
CPT/HCPCS: 59025; 85025; 86850; 86900; 86901; 88307; 99213

== ENCOUNTER → 2019-09-13 | Outpatient (CLI) | payer OTHER ==
[2019-09-13 11:53] LABS: Anisocytosis Slight; Basophils % (A) 0 %; Eosinophils # (A) 0.1 k/uL (0-0.7); Eosinophils % (A) 1 %; HCT 33.9 % (34.0-46.0); HGB 10.5 gm/dL (11.4-16.0); Hypochromasia Moderate; Lymphocytes # (A) 2.1 k/uL (1.0-4.8); Lymphocytes % (A) 29 %; MCH 24.5 pg (25.0-35.0); MCHC 30.9 g/dL (31.0-37.0); MCV 79.3 fL (80.0-100.0); Mean Platelet Volume 5.6; Microcytosis Slight; Monocytes # (A) 0.5 k/uL (0-1.0); Monocytes % (A) 7 %; Neutrophils # (A) 4.4 k/uL (1.3-7.7); Neutrophils % (A) 60 %; Platelet Count 456 k/uL (150-450); RBC 4.27 m/uL (3.80-5.40); RDW 16.2 % (11.5-15.5); WBC 7.3 k/uL (3.8-10.6)
== END | disposition home or self-care (01) ==
LOC: LABPAT 11:29
PROVIDERS: ATTEND Obstetrics & Gynecology
DX: Z01.812 Encounter for preprocedural laboratory examination (principal); Z64.0 Problems related to unwanted pregnancy
CPT/HCPCS: 85025

== ENCOUNTER 2019-09-15 08:16 | Day surgery (SDC) | payer OTHER ==
--- NOTE | 2019-09-04 17:55 | HP ---
HISTORY AND PHYSICAL REASON FOR ADMISSION: Surgery on 09/15/2019. HISTORY OF PRESENT ILLNESS: The patient is a 19-year-old 2, para 2-0-0-2 who has requested tubal sterilization with Filshie clips. I have had multiple long discussions with her regarding the permanent nature of the procedure and the possibility of regret should she go through with this. She, however, has insisted that she is finished with childbearing and wishes to proceed with the procedure as noted above. PAST MEDICAL HISTORY: None. PAST SURGICAL HISTORY: Significant only for section x2 and wisdom teeth extraction in the past. OBSTETRICAL/GUZZLER BUILDER HISTORY: 2, para 2-0-0-2 with 2 term sections without complications. Current method of contraception is abstinence. Gynecologic history is unremarkable with no history of any infections to include STDs. FAMILY HISTORY: Noncontributory. 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 She is a nonsmoker and denies any significant alcohol or any other social concerns. CURRENT MEDICATIONS: None. ALLERGIES: No known drug allergies. REVIEW OF SYSTEMS: Confined to history of present illness. PHYSICAL EXAMINATION: Vital signs are stable. The patient is afebrile. In general, this is a well- developed, well-nourished female in no acute distress. Her heart has a regular rhythm and rate without murmur. Her lungs are clear to auscultation bilaterally in all rodríguez. Her abdomen is nondistended, has normoactive bowel sounds, is soft, nontender, and without any palpable masses hepatosplenomegaly, or hernias. Her extremities are without any cyanosis, clubbing, or edema and are nontender to palpation bilaterally. Pelvic examination demonstrates normal external genitalia and BUS with normal vaginal mucosa and cervix. Uterus is approximately 5 weeks in size, mid plane, mobile, nontender, normal in shape. The adnexa are normal and nontender without mass bilaterally. ASSESSMENT AND PLAN: Undesired fertility, multiparity: I have, as noted above, had multiple discussions with the patient regarding the potential for regret with early tubal ligation and that it is strongly discouraged prior to age 24. She is aware of multiple other long-term reversible options which we have discussed at length and has again insisted and requested bilateral laparoscopic tubal occlusion with Filshie clips. The risks and complications of the procedure have been thoroughly discussed including the risks for bleeding, bleeding requiring transfusion, infection, and injury to local structures to include the bowel, bladder, and ureters. I went on to discuss that the known failure rate as well as the subsequent risk for ectopic . She is certainly aware of the permanent nature of the procedure. At this time, we are scheduled to proceed with the procedure as outlined above on the morning of September 15, 2019. MMODL / IJN: [id number] /
[2019-09-11 14:28] VITALS: BMI 37.2
[~2019-09-15 08:16] MED LIST: DEXAMETHASONE SOD PHOSPHATE 10 MG/ML 1 ML VIAL IV ONE; HYDROmorphone 0.5 MG/0.5 ML SYRINGE IVP PRN; LACTATED RINGERS 1,000 ML IV SCH; MIDAZOLAM 2 MG/2 ML VIAL IV PRN; ONDANSETRON 4 MG/2 ML VIAL IVP ONE; Pre Op ABX Message 1 EACH MISC MISCELLANE ONE; SCOPOLAMINE 1.5MG/72HR PATCH TRANSDERM ONE
[2019-09-15] MEDS ORDERED: LACTATED RINGERS 1,000 ML IV ONE (08:37)
[2019-09-15] MEDS ORDERED: LIDOCAINE 1% 20 ML VIAL (10MG/ML) FOR IV START INTRADERMA ONE (08:37)
[2019-09-15] MEDS ORDERED: SUCCINYLCHOLINE CHLORIDE 100 MG/5 ML SYR IV ONE (09:01)
[2019-09-15] MEDS ORDERED: KETOROLAC 30 MG/ML 1 ML VIAL ONE (09:01)
[2019-09-15] MEDS ORDERED: HYDROmorphone (PF) 1 MG/ML ONE (09:01)
[2019-09-15] MEDS ORDERED: fentaNYL (PF) 50 MCG/ML 2 ML AMP ONE (09:01)
[2019-09-15] MEDS ORDERED: LIDOCAINE 1% INJ 10MG/ML (20 ML MDV) ONE (09:01)
[2019-09-15] MEDS ORDERED: PROPOFOL 10 MG/ML 20 ML VIAL IV ONE (09:01)
[2019-09-15] MEDS ORDERED: MIDAZOLAM 2 MG/2 ML VIAL ONE (09:01)
[2019-09-15] MEDS ORDERED: ACETAMINOPHEN IV (For NPO) 1,000 MG/100 ML VIAL ONE (09:01)
[2019-09-15] MEDS ORDERED: KETOROLAC 30 MG/ML 1 ML VIAL IVP PRN (09:03)
[2019-09-15] MEDS ORDERED: METOCLOPRAMIDE 5 MG/ML 2 ML VIAL IVP PRN (09:03)
[2019-09-15] MEDS ORDERED: ONDANSETRON 4 MG/2 ML VIAL IVP PRN (09:03)
[2019-09-15] MEDS ORDERED: SIMETHICONE 80 MG CHEWABLE PO PRN (09:03)
[2019-09-15] MEDS ORDERED: diphenhydrAMINE 50 MG/ML 1 ML VIAL IVP PRN (09:03)
[2019-09-15] MEDS ORDERED: traMADol 50 MG TAB PO PRN (09:04)
[2019-09-15] MEDS ORDERED: LACTATED RINGERS 1,000 ML IV SCH (09:15)
[2019-09-15] MEDS ORDERED: BUPIVACAINE (PF) 0.25% 30 ML VIAL SQ ONE ×2 (09:32→09:43)
--- NOTE | 2019-09-15 09:50 | P.OP ---
Date of Procedure: 09/15/19 Preoperative Diagnosis: #1. Multiparity #2. Undesired fertility Postoperative Diagnosis: Same Procedure(s) Performed: #1. Laparoscopic bilateral tubal occlusion with Filshie clips Anesthesia: STEPHANIE Surgeon: Henry Gandhi Estimated Blood Loss (ml): 2 IV fluids (ml): 600 Urine output (ml): 50 Pathology: none sent Condition: stable Disposition: PACU Operative Findings: Preoperative pelvic examination demonstrated a 4-5 week midplane mobile normal shaped uterus with normal adnexa bilaterally. Intraoperatively, the uterus, tubes, and ovaries were entirely normal to inspection. There is no evidence of any pathology in the pelvis. The appendix, small bowel, large bowel, liver, gallbladder, and diaphragm were normal to inspection. Description of Procedure: The patient was prepped and draped in usual fashion after general endotracheal anesthesia was administered by the anesthesiologist. A speculum was placed in the anterior lip of the cervix grasped with a double-tooth tenaculum allowing placement of an acorn cannula. The bladder was then drained of approximately 50 mL of clear tatiana urine. Attention was turned to the abdomen where a 5 mm incision was made in the vertical fold of the umbilicus allowing insertion of a 5 mm optical trocar under direct visualization without difficulty. A pneumoperitoneum was then established. Trendelenburg positioning was utilized and a site was selected in a pre-existing section scar where a roughly 8 mm incision was made in the transverse plane allowing insertion of an 8 mm trocar under direct visualization with minimal difficulty secondary to some scarring at the level of the fascia. The blunt probe was utilized to sweep the bowel from the pelvis and the findings are as noted above. The probe was replaced with a Filshie clip applicator which was utilized to place a Filshie clip across the right fallopian tube in the isthmic portion approximately 2-3 cm from the cornea where it was firmly affixed. A similar operation was carried out on the left side without difficulty. The remainder of the pelvis and abdomen were reexamined with the laparoscope and the findings are as noted above, entirely normal. The transmission technician mentation was removed and the pneumoperitoneum evacuated through the 2 trochars. The trochars were then removed and the incisions closed with interrupted subcuticular stitches of 4-0 Vicryl followed by half-inch Steri-Strips. The incisions were then injected with a total of 10 mL of quarter percent Marcaine without epinephrine equally divided between the 2 incisions. All sponge, instrument, and needle counts were correct. Estimated blood loss for the case is approximately 2 mL. There were no complications. The patient tolerated the procedure all proceeded to the recovery room in stable condition.
[2019-09-15 09:59] VITALS: TEMP 97.4
[2019-09-15] MEDS ORDERED: MEPERIDINE 50 MG/ML SYRINGE IVP ONE (10:20)
[2019-09-15] MEDS ORDERED: PROMETHAZINE INJ 25 MG/ML 1 ML VIAL IVPB ONE (10:33)
[2019-09-15 11:14] VITALS: RESP 16
[2019-09-15 12:16] VITALS: BP 126/76; PULSE 77
[2019-09-16] MEDS ORDERED: ACETAMINOPHEN TAB 325 MG TAB PO PRN (09:04)
== END 2019-09-15 12:34 | disposition home or self-care (01) ==
LOC: OR 08:16
PROVIDERS: ATTEND Obstetrics & Gynecology
DX: Z30.2 Encounter for sterilization (principal)
CPT/HCPCS: 81025; 58671; J2250; J1100; J2550; J2175; J2405; J2001; J3010; J1885; J1170; J0131; J0330; J2704

== ENCOUNTER 2020-01-06 00:14 | Emergency (ER) | payer OTHER ==
[2020-01-06 00:23] VITALS: PULSE 77
[2020-01-06] MEDS ORDERED: ACETAMINOPHEN TAB 500 MG TAB PO STA (00:45)
[2020-01-06] MEDS ORDERED: ONDANSETRON ODT 4 MG TAB PO STA (00:45)
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
[2020-01-06 02:07] VITALS: BP 131/85; RESP 20; TEMP 97.4
== END 2020-01-06 02:07 | disposition home or self-care (01) ==
LOC: EC 00:14
DX: S16.1XXA Strain of muscle, fascia and tendon at neck level, initial encounter (principal); S39.012A Strain of muscle, fascia and tendon of lower back, initial encounter; S06.0X1A Concussion with loss of consciousness of 30 minutes or less, initial encounter; R10.30 Lower abdominal pain, unspecified; Z98.51 Tubal ligation status; V43.62XA Car passenger injured in collision with other type car in traffic accident, initial encounter; Y92.410 Unspecified street and highway as the place of occurrence of the external cause
CPT/HCPCS: 70450; 71046; 72110; 72125; 72170; 99284

== ENCOUNTER 2020-01-17 15:58 | Emergency (ER) | payer OTHER ==
[2020-01-17 16:01] VITALS: TEMP 98.4
--- NOTE | 2020-01-17 16:31 | ED ---
Female Urogenital HPI - General Chief complaint: Urogenital Stated complaint: Cough Time Seen by Provider: 01/17/20 16:03 Source: patient Mode of arrival: ambulatory Limitations: no limitations - History of Present Illness Initial comments: Patient is a 19-year-old female presenting to emergency Department with a chief complaint of a cough and unable to urinate. States about 2 days ago she has developed a nonproductive cough along with a sore throat. Patient does report an episode of posttussive emesis that was nonbilious and nonbloody. Patient a lso reports a fever but she did not take any medications for her. Patient denies any chest pain or shortness of breath. Patient is a smoker. Patient also reports obstructive urinary symptoms or last 3 days. Patient reports she has to really push to only get small amounts of urine out. Also reports dysuria when anything comes up. Does report some suprapubic tenderness and bladder fullness. Has low reports low suspicion for STD . States she is in a monogamous relationship. Last Menstrual Period: 01/10/20 - Related Data Previous Rx's Medication Instructions Recorded Ibuprofen [Motrin] 600 mg PO Q8HR PRN #30 tab 01/06/20 Ondansetron [Zofran ODT] 4 mg PO Q8HR PRN #10 tab 01/06/20 Cephalexin [Keflex] 500 mg PO BID 5 Days #10 cap 01/17/20 Oseltamivir [Tamiflu] 75 mg PO Q12HR #10 cap 01/17/20 Allergies Allergy/AdvReac Type Severity Reaction Status Date / Time No Known Allergies Allergy Verified 01/17/20 16:01 Review of Systems ROS Statement: Those systems with pertinent positive or pertinent negative responses have been documented in the HPI. ROS Other: All systems not noted in ROS Statement are negative. Past Medical History Past Medical History: No Reported History History of Any Multi-Drug Resistant Organisms: None Reported Past Surgical History: Section Past Anesthesia/Blood Transfusion Reactions: Postoperative Nausea & Vomiting (PONV) Past Psychological History: No Psychological Hx Reported Smoking Status: Never smoker Past Alcohol Use History: None Reported Past Drug Use History: None Reported - Past Family History Mother History Unknown: Yes Family Medical History: No Reported History Additional Family Medical History / Comment(s): "clotting issue-not sure what it is" General Exam Limitations: no limitations General appearance: alert, in no apparent distress Head exam: Present: atraumatic, normocephalic, normal inspection Eye exam: Present: normal appearance Pupils: Present: normal accommodation ENT exam: Present: normal exam, mucous membranes moist, TM's normal bilaterally, normal external ear exam. Absent: normal oropharynx (Tonsillar erythema but no exudates) Neck exam: Present: normal inspection, full ROM Respiratory exam: Present: normal lung sounds bilaterally Cardiovascular Exam: Present: regular rate, normal rhythm, normal heart sounds GI/Abdominal exam: Present: soft, tenderness (Suprapubic tenderness). Absent: distended, guarding, rebound Extremities exam: Present: normal inspection, full ROM Back exam: Present: normal inspection, full ROM Neurological exam: Present: alert, oriented X3 Psychiatric exam: Present: normal affect, normal mood Skin exam: Present: warm, dry, intact, normal color Course Vital Signs 01/17/20 01/17/20 01/17/20 15:59 16:01 17:01 Temperature 98.4 F Pulse Rate 95 86 Respiratory 18 20 18 Rate Blood Pressure 110/74 120/74 O2 Sat by Pulse 97 97 Oximetry Medical Decision Making - Medical Decision Making patient is a 19-year-old female presenting to emergency Department with a chief complaint of cough and and unable to urinate. On exam patient does have some suprapubic tenderness patient denies any vaginal symptoms but does report dysuria. Cough has been ongoing for about 2 days. Patient is testing positive for influenza. Chest x-ray is unremarkable. Patient will be started on Tamiflu. She was advised to alternate between Tylenol and Motrin for pain control. Patient was offered a straight catheter but she refused. She was able to give a urine sample. Post-void residual volume was 100ml. the patient was offered a Stark catheter until she is able to see a urologist but she declined. Patient was advised to see a urologist. UA shows positive leukocyte esterase but no white blood cells. Patient has had tubal ligation. She declined pelvic examination. She has no suspicion for STDs. She is not . Patient was started on Keflex for 3 days. Return parameters were thoroughly discussed with patient was icing and agreeable. Case discussed with physician. - Lab Data Lab Results 01/17/20 01/17/20 01/17/20 Range/Units 16:32 16:32 16:32 Urine Color Yellow Urine Appearance Cloudy H (Clear) Urine pH 6.0 (5.0-8.0) Ur Specific [place] 1.019 (1.001-1.035) Urine Protein Trace H (Negative) Urine Glucose (UA) Negative (Negative) Urine Ketones 2+ H (Negative) Urine Blood Negative (Negative) Urine Nitrite Negative (Negative) Urine Bilirubin Negative (Negative) Urine Urobilinogen <2.0 (<2.0) mg/dL Ur Leukocyte Esterase Small H (Negative) Urine RBC 3 (0-5) /hpf Urine WBC 4 (0-5) /hpf Ur Squamous Epith Cells 21 H (0-4) /hpf Urine Bacteria Rare H (None) /hpf Urine Mucus Few H (None) /hpf Urine HCG, Qual Not Detected (Not Detectd) Influenza Type A RNA Not Detected (Not Detectd) Influenza Type B (PCR) Detected H (Not Detectd) Disposition Clinical Impression: Influenza, Cough, Urinary obstruction, unspecified Disposition: HOME SELF-CARE Condition: Stable Instructions (If sedation given, give patient instructions): Influenza (DC) Additional Instructions: Follow-up with urologist. Return to emergency department if symptoms worsen. Prescriptions: Cephalexin [Keflex] 500 mg PO BID 5 Days #10 cap Oseltamivir [Tamiflu] 75 mg PO Q12HR #10 cap Is patient prescribed a controlled substance at d/c from ED?: No Referrals: Lakhwinder Adair DO [Primary Care Provider] - 1-2 days Arnaldo Kaur MD [STAFF PHYSICIAN] - 1-2 days Time of Disposition: 17:44
[2020-01-17 16:48] LABS: Appearance,Urine Cloudy (Clear); Bacteria,Urine Rare /hpf; Bilirubin,Urine Negative (Negative); Blood,Urine Negative (Negative); Color,Urine Yellow; Glucose,Urine (UA) Negative (Negative); Ketones,Urine 2+ (Negative); Leukocyte Esterase,Urine Small (Negative); Mucus,Urine Few /hpf; Nitrite,Urine Negative (Negative); Protein,Urine Trace (Negative); RBC,Urine 3 /hpf (0-5); Specific Gravity,Urine 1.019 (1.001-1.035); Squamous Epithelial Cell,Urine 21 /hpf (0-4); Urobilinogen,Urine <2.0 mg/dL (<2.0); WBC,Urine 4 /hpf (0-5)
--- NOTE | 2020-01-17 16:50 | XR ---
EXAMINATION TYPE: XR chest 2V DATE OF EXAM: 01/17/2020 COMPARISON: 01/06/2020 INDICATION: Cough and fever TECHNIQUE: Frontal and lateral views of the chest are obtained. FINDINGS: The heart size is normal. The pulmonary vasculature is normal. The lungs are clear. IMPRESSION: 1. No acute pulmonary process.
[2020-01-17 18:36] VITALS: BP 126/80; PULSE 78
[2020-01-17 18:39] VITALS: RESP 20
== END 2020-01-17 18:39 | disposition home or self-care (01) ==
LOC: EC 15:58
DX: J11.1 Influenza due to unidentified influenza virus with other respiratory manifestations (principal); N13.9 Obstructive and reflux uropathy, unspecified; F17.200 Nicotine dependence, unspecified, uncomplicated; Z98.51 Tubal ligation status; Z53.20 Procedure and treatment not carried out because of patient's decision for unspecified reasons
CPT/HCPCS: 51798; 71046; 81001; 81025; 87502; 99284

== ENCOUNTER 2022-01-20 09:43 | Emergency (ER) | payer OTHER ==
[2022-01-20 10:01] VITALS: RESP 16; TEMP 98
--- NOTE | 2022-01-20 10:47 | ED ---
General Adult HPI - General Chief complaint: Abdominal Pain Stated complaint: lt sided abd pain Time Seen by Provider: 01/20/22 10:00 Source: patient, RN notes reviewed, old records reviewed Mode of arrival: ambulatory Limitations: no limitations - History of Present Illness Initial comments: This is a 21-year-old female who presents emergency Department and states that she started having some left-sided abdominal pain. Patient states she just hasn't had a bowel movement of any significance in the week. Patient states when she does have they're very hard. Patient states she believes she still is constipated. Patient also states she has some dysuria. Patient denies any fever chills. Patient denies any chest pain difficulty breathing shortness of breath. Patient states she does not want any workup she just wantsconstipated and if she has urinary tract infection. Patient is refusing blood work currently. - Related Data Previous Rx's Medication Instructions Recorded Cephalexin [Keflex] 500 mg PO Q6HR #28 cap 01/20/22 Allergies Allergy/AdvReac Type Severity Reaction Status Date / Time No Known Allergies Allergy Verified 01/20/22 10:35 Review of Systems ROS Statement: Those systems with pertinent positive or pertinent negative responses have been documented in the HPI. ROS Other: All systems not noted in ROS Statement are negative. Past Medical History Past Medical History: No Reported History History of Any Multi-Drug Resistant Organisms: None Reported Past Surgical History: Section Past Anesthesia/Blood Transfusion Reactions: Postoperative Nausea & Vomiting (PONV) Past Psychological History: No Psychological Hx Reported Smoking Status: Current every day smoker Past Alcohol Use History: None Reported Past Drug Use History: None Reported - Past Family History Mother History Unknown: Yes Family Medical History: No Reported History Additional Family Medical History / Comment(s): "clotting issue-not sure what it is" General Exam - General Exam Comments Initial Comments: GENERAL: Patient is well-developed and well-nourished. Patient is nontoxic and well- hydrated and is in no acute distress. ENT: Neck is soft and supple. No significant lymphadenopathy is noted. Oropharynx is clear. Moist mucous membranes. Neck has full range of motion without eliciting any pain. EYES: The sclera were anicteric and conjunctiva were pink and moist. Extraocular movements were intact and pupils were equal round and reactive to light. Eyelids were unremarkable. PULMONARY: Unlabored respirations. Good breath sounds bilaterally. No audible rales rhonchi or wheezing was noted. CARDIOVASCULAR: There is a regular rate and rhythm without any murmurs gallops or rubs. ABDOMEN: Minimal left flank tenderness. SKIN: Skin is clear with no lesions or rashes and otherwise unremarkable. NEUROLOGIC: Patient is alert and oriented x3. Cranial nerves II through XII are grossly intact. Motor and sensory are also intact. Normal speech, volume and content. Symmetrical smile. MUSCULOSKELETAL: Normal extremities with adequate strength and full range of motion. LYMPHATICS: No significant lymphadenopathy is noted PSYCHIATRIC: Normal psychiatric evaluation. Limitations: no limitations Course Vital Signs 01/20/22 09:56 Temperature 98.0 F Pulse Rate 82 Respiratory 16 Rate Blood Pressure 117/76 O2 Sat by Pulse 99 Oximetry Medical Decision Making - Medical Decision Making KUB shows constipation Patient's urine showed 25 white cells should be treated for urinary tract infection cultures will be done. - Lab Data Lab Results 01/20/22 Range/Units 10:12 Urine Color Light Yellow Urine Appearance Cloudy H (Clear) Urine pH 6.0 (5.0-8.0) Ur Specific [place] 1.010 (1.001-1.035) Urine Protein Trace (Negative) Urine Glucose (UA) Negative (Negative) Urine Ketones Negative (Negative) Urine Blood Trace (Negative) Urine Nitrite Negative (Negative) Urine Bilirubin Negative (Negative) Urine Urobilinogen <2.0 (<2.0) mg/dL Ur Leukocyte Esterase Large (Negative) Urine RBC 3 (0-5) /hpf Urine WBC 25 H (0-5) /hpf Urine WBC Clumps 2 (None) /hpf Ur Squamous Epith Cells 4 (0-4) /hpf Urine Bacteria Moderate H (None) /hpf Disposition Clinical Impression: Constipation, Urinary tract infection Disposition: HOME SELF-CARE Condition: Good Instructions (If sedation given, give patient instructions): Constipation (ED), Urinary Tract Infection in Women (ED) Prescriptions: Cephalexin [Keflex] 500 mg PO Q6HR #28 cap Is patient prescribed a controlled substance at d/c from ED?: No Referrals: Lakhwinder Adair DO [Primary Care Provider] - 1-2 days Time of Disposition: 11:43
--- NOTE | 2022-01-20 10:56 | XR ---
CBD HISTORY: Left lower quadrant pain Frontal KUB and 2 images, no comparisons Lung bases are clear. There is an air-fluid level without bowel distention. Retained fecal debris is present throughout the distribution of the colon. Fallopian tubal ligation clips are present. No path ologic calcification. No evident pneumoperitoneum. IMPRESSION: Correlate for fecal stasis, ileus versus enteritis, follow-up as indicated.
[2022-01-20 11:32] LABS: Color,Urine Light Yellow
[2022-01-20 11:33] LABS: Appearance,Urine Cloudy (Clear); Bilirubin,Urine Negative (Negative); Blood,Urine Trace (Negative); Glucose,Urine (UA) Negative (Negative); Ketones,Urine Negative (Negative); Protein,Urine Trace (Negative); Urobilinogen,Urine <2.0 mg/dL (<2.0)
[2022-01-20 11:34] LABS: Leukocyte Esterase,Urine Large (Negative); Nitrite,Urine Negative (Negative)
[2022-01-20 11:37] LABS: Bacteria,Urine Moderate /hpf; RBC,Urine 3 /hpf (0-5); Squamous Epithelial Cell,Urine 4 /hpf (0-4); WBC,Urine 25 /hpf (0-5)
[2022-01-20 12:03] VITALS: BP 126/89; PULSE 87
== END 2022-01-20 12:03 | disposition home or self-care (01) ==
LOC: EC 09:43
DX: K59.00 Constipation, unspecified (principal); N39.0 Urinary tract infection, site not specified; F17.200 Nicotine dependence, unspecified, uncomplicated
CPT/HCPCS: 74018; 81001; 87077; 87086; 87186; 99284